=== PATIENT | female | born 1960 | race Caucasian/White ===

== ENCOUNTER → 2016-07-24 | Outpatient (CLI) | payer BC ==
[2013-05-03 11:14] VITALS: BP 150/82
[~2016-07-24] MED LIST: NS 100 ML IV 100 ML IV ONE
[2016-07-24 10:12] LABS: CREATININE 0.81 mg/dL (0.55-1.02)
--- NOTE | 2016-07-27 08:55 | CT ---
HISTORY: Soft tissue mass right humerus, right shoulder Study: CT of the right upper extremity Comparison: None Technique: Multiple axial images were obtained with and without administration of IV contrast. Sagi ttal and coronal reformats were performed and reviewed. Dose reduction techniques including Automate d Exposure Control (AEC) and adjustment of mA and kV were utilized. Findings: A metallic BB is placed overlying the region of interest of the right shoulder. Just lateral to the acromion there is a fatty ovoid mass overlying the deltoid muscle measuring approximately 4.5 x 2.9 by 2.0 cm suggestive of a lipoma. No solid features are seen. There is no enhancement. An additional metallic BB is placed overlying the distal biceps. No soft tissue mass or fatty lesion is seen in this region. There is no abnormal enhancement. There is no evidence to suggest biceps ru pture. There are no fluid collections identified. No evidence of acute fracture. There are degenerative changes at the shoulder and elbow. The visuali zed bony thorax and lung gentile are unremarkable. IMPRESSION: 1. Just lateral to the acromion there is a fatty ovoid mass overlying the right deltoid muscle measu ring 4.5 x 2.9 x 2.0 cm suggestive of a lipoma. No solid features or abnormal enhancement identified . 2. The 2nd metallic BB is placed overlying the distal biceps and there is no evidence of soft tissue mass, fluid collection or fatty lesion seen in this area. No evidence of biceps rupture. Reported By:
== END ==
LOC: RAD 09:36
PROVIDERS: ATTEND Internal Medicine
DX: R22.31 Localized swelling, mass and lump, right upper limb (principal)
CPT/HCPCS: 36415; 73201; 82565; 84520; A4222

== ENCOUNTER → 2016-08-04 | Outpatient (CLI) | payer BC ==
[2013-05-03 11:14] VITALS: BP 150/82
--- NOTE | 2016-08-04 10:21 | MG ---
Examination: Bilateral screening mammogram. Clinical history: Routine screening. Technique: Digital CC and MLO views of both breasts were obtained. Computer aided detection analysis was performed and used during the interpretation. Comparison: None available. Findings: The breasts are composed of scattered fibroglandular densities. A benign-appearing calcification is present in the right breast. There is a cluster of calcifications present at the 12 o'clock position in the left breast in the an terior to middle depth. Additional imaging evaluation is recommended, with spot magnification views in the CC and lateral projections and a lateral view of the left breast. There are 2 oval densities present in the upper outer aspect of the right breast in the middle and a nterior tips. Additional imaging evaluation is recommended, with spot compression magnification view s in the CC and MLO projections, a lateral view of the right breast and a right breast ultrasound. Impression: 1. Cluster of calcifications in the left breast and 2 densities in the right breast, as described ab ove. BI-RADS category 0 (ZERO) - ASSESSMENT INCOMPLETE; ADDITIONAL IMAGING IS NEEDED. Recommend immediate recall for additional imaging evaluation, as described above. Diagnostic CAD was utilized and reviewed. * 0 (ZERO) - ASSESSMENT INCOMPLETE; ADDITIONAL IMAGING IS NEEDED. * 0C - ASSESSMENT INCOMPLETE, NEEDS ADDITIONAL IMAGING EVALUATION AND/OR PRIOR MAMMOGRAMS FOR COMPAR EVANS. * 1/1 (ONE) - NEGATIVE. * 2/II (TWO) - BENIGN FINDINGS. * 3/III (THREE) - PROBABLY BENIGN FINDING; SHORT INTERVAL FOLLOW-UP SUGGESTED. * 4/IV (FOUR) - SUSPICIOUS ABNORMALITY; BIOPSY SHOULD BE CONSIDERED. * 5/V - HIGHLY SUSPICIOUS OF MALIGNANCY; BIOPSY SHOULD BE PERFORMED. * 6/IV - KNOWN BIOPSY PROVEN MALIGNANCY-APPROPRIATE ACTION SHOULD BE TAKEN. A NEGATIVE X-RAY REPORT SHOULD NOT DELAY BIOPSY IF A DOMINANT OR CLINICALLY SUSPICIOUS MASS IS PRESENT; 4 TO 8 PERCENT OF CANCERS ARE NOT IDENTIFIED BY X-RAY. A NEGATIVE REPORT MAY REINFORCE THE CLINICAL IMPRESSION. ADENOSIS AND DENSE BREASTS MAY OBSCURE AN UNDERLYING NEOPLASM. Reported By:
== END ==
LOC: RAD 09:23
PROVIDERS: ATTEND Physician Assistant Medical
DX: Z12.31 Encounter for screening mammogram for malignant neoplasm of breast (principal)
CPT/HCPCS: 77067

== ENCOUNTER → 2016-08-18 | Outpatient (CLI) | payer BC ==
[2013-05-03 11:14] VITALS: BP 150/82
--- NOTE | 2016-08-18 14:39 | MG ---
HISTORY: Abnormal baseline screening mammography with right breast nodules and left breast microcal cifications Bilateral digital diagnostic mammography with CAD and right breast ultrasound. Comparison: August 04, 2016 FINDINGS: Mammogram: ML and spot magnification images of both breasts were obtained. Heterogeneously dense fi broglandular tissue is seen to be present. There are persistent sub cm partially obscured and parti ally circumscribed lobulated lateral right breast nodules with an equivocal central notched lucency favored to represent benign intramammary lymph nodes or perhaps fibroadenomas or small cysts but whi ch will be correlated with ultrasound. No skin thickening or nipple retraction is appreciated. No pathological lymphadenopathy can be identified. There are small groupings of predominantly punctate microcalcifications located within the lateral right and 12 o'clock left breast most likely reflect ing fibrocystic change without suspicious fine linear blanching pleomorphism. Ultrasound: Multiple grayscale images of the right breast were obtained from 8-11 o'clock. There are no suspicious cystic or solid nodules. IMPRESSION: Probably benign right breast nodules and bilateral microcalcifications for which 6 bethany h follow up bilateral mammography is recommended to document stability and establish a baseline give n the lack of previous remote exams with which to compare. ACR CATEGORY 3 - probably benign findings; short interval followup suggested. Diagnostic CAD was utilized and reviewed. * 0 (ZERO) - ASSESSMENT INCOMPLETE; ADDITIONAL IMAGING IS NEEDED. * 1/1 (ONE) - NEGATIVE. * 2/II (TWO) - BENIGN FINDINGS. * 3/III (THREE) - PROBABLY BENIGN FINDING; SHORT INTERVAL FOLLOW-UP SUGGESTED. * 4/IV (FOUR) - SUSPICIOUS ABNORMALITY; BIOPSY SHOULD BE CONSIDERED. * 5/V (FIVE) - HIGHLY SUSPICIOUS OF MALIGNANCY; BIOPSY SHOULD BE PERFORMED. A NEGATIVE X-RAY REPORT SHOULD NOT DELAY BIOPSY IF A DOMINANT OR CLINICALLY SUSPICIOUS MASS IS PRESENT; 4 TO 8 PERCENT OF CANCERS ARE NOT IDENTIFIED BY X-RAY. A NEG ATIVE REPORT MAY REINFORCE THE CLINICAL IMPRESSION. ADENOSIS AND DENSE BREASTS MAY OBSCURE AN UNDER LYING NEOPLASM. Reported By:
== END ==
LOC: RAD 12:42
PROVIDERS: ATTEND Internal Medicine
DX: R92.8 Other abnormal and inconclusive findings on diagnostic imaging of breast (principal)
CPT/HCPCS: 76642; 77066

== ENCOUNTER 2016-09-02 07:29 | Day surgery (SDC) | payer BC ==
[~2016-09-02 07:29] MED LIST changes: +ANCEF VIAL 1 GM ONE; +LR 1000 ML IV 1,000 ML IV ONE; -NS 100 ML IV 100 ML IV ONE; +NS 50 ML IV + SPIKE MINIBAG* 50 ML IV ONE
[2016-09-02] MEDS ORDERED: XYLOCAINE 2 % (PLAIN) ONE ×2 (07:35→10:12)
[2016-09-02] MEDS ORDERED: MARCAINE 0.25% WITH EPI IJ ONE (07:35)
[2016-09-02] MEDS ORDERED: FENTANYL INJ 100 mcg ONE (08:35)
[2016-09-02] MEDS ORDERED: NS IRRIGATION 1000 ML 1,000 ML IR ONE (09:14)
[2016-09-02] MEDS ORDERED: NORCO 5/325 MG TAB ONE (09:56)
[2016-09-02] MEDS ORDERED: DIPRIVAN VIAL ONE (10:12)
[2016-09-02] MEDS ORDERED: VERSED ONE (10:12)
[2016-09-02 11:12] VITALS: BP 171/78
== END 2016-09-02 10:52 | disposition home or self-care (01) | DRG 572 ==
LOC: SURG1 07:29
PROVIDERS: ATTEND Student in an Organized Health Care Education/Training Program
PROC: 0JBD0ZZ Excision of Right Upper Arm Subcutaneous Tissue and Fascia, Open Approach (ICD-10-PCS; principal; 2016-09-02 08:30)
DX: D17.21 Benign lipomatous neoplasm of skin and subcutaneous tissue of right arm (principal)
CPT/HCPCS: A4222; S0020; J0690; J2001; J2250; J3010; J3490; J7120

== ENCOUNTER → 2016-10-22 | Outpatient (CLI) | payer BC ==
--- NOTE | 2016-10-22 11:48 | US ---
HISTORY: Abdominal pain. Study: Complete abdominal ultrasound exam. Comparison: None. Technique: Multiple montemayor scale and color flow Doppler images of the abdomen were obtained. Findings: The liver is mildly enlarged and fatty/echogenic in echotexture. No intraparenchymal mass or intrah epatic biliary ductal dilatation can be identified. The gallbladder has been surgically removed. T he common bile duct is normal measuring 6 millimeters. The spleen and pancreas are largely obscured by overlying stool and bowel gas. The right and left kidney are normal in echotexture and size. The right kidney measures 9 x 5 x 6 centimeters. The left kidney measures 9 x 6 x 5 centimeters. No mass , hydronephrosis, or stone can be identified. The visualized portions of the abdominal aorta are nor mal in size without aneurysmal dilatation. The inferior vena cava is unremarkable as well. No ascit es or loculated fluid collection is seen. IMPRESSION: 1. The liver is enlarged and echogenic/fatty in appearance. 2. Status post cholecystectomy. No ascites is observed. 3. Liver \T\ spleen are obscured by overlying stool/bowel gas. Reported By:
== END | disposition home or self-care (01) | DRG 392 ==
LOC: RAD 11:04
PROVIDERS: ATTEND Physician Assistant Medical
DX: R10.84 Generalized abdominal pain (principal); Z90.49 Acquired absence of other specified parts of digestive tract; K76.0 Fatty (change of) liver, not elsewhere classified
CPT/HCPCS: 76700

== ENCOUNTER → 2017-02-12 | Outpatient (CLI) | payer BC ==
[~2017-02-12] MED LIST changes: -ANCEF VIAL 1 GM ONE; -LR 1000 ML IV 1,000 ML IV ONE; +NS 100 ML IV 100 ML IV ONE; -NS 50 ML IV + SPIKE MINIBAG* 50 ML IV ONE
[2017-02-12 09:26] LABS: CREATININE 1.07 mg/dL (0.55-1.02)
--- NOTE | 2017-02-12 21:46 | CT ---
CT of the abdomen and pelvis with IV and oral contrast Indication: Lower abdominal suprapubic pain. Technique: After the administration of both oral and IV contrast 5 mm axial images of the abdomen and pelvis were performed. Coronal sagittal reformats were obtained from the original data set. Findings: Images of the lower lungs are unremarkable. The subcutaneous tissues show no abnormality. T he bone windows demonstrate mild multilevel discogenic degenerative disease within L3 vertebral body hemangioma. Abdomen: The liver is unremarkable except for a subcentimeter hypodensity along its inferior medial m argin which likely represents a simple cyst. The kidneys, spleen, adrenal glands and pancreas are unr emarkable. The gallbladder is been removed. There is no free abdominal fluid or adenopathy. Pelvis: The urinary bladder is distended otherwise unremarkable. there is loss of haustra involving t he sigmoid colon. There is prior right lower pelvic surgery. There is no evidence of obstruction or i leus. No evidence of mesenteric inflammation is seen. There is no free pelvic fluid or adenopathy. Conclusion: No abnormality to explain the patient's pain. Postsurgical findings within the right lowe r quadrant show no complication. Reported By:
== END ==
LOC: RAD 08:31
PROVIDERS: ATTEND Physician Assistant Medical
DX: R10.84 Generalized abdominal pain (principal)
CPT/HCPCS: 36415; 74177; 82565; 84520; A4222

== ENCOUNTER → 2017-06-30 | Day surgery (SDC) | payer BC ==
[~2017-06-30] MED LIST changes: +DIPRIVAN VIAL 20 ML ONE; -NS 100 ML IV 100 ML IV ONE; +NS 1000 ML 1,000 ML ONE
[2017-06-30 12:08] VITALS: BP 125/76
--- NOTE | 2017-06-30 13:09 | OR.GENERIC ---
Post-Op Note Generic - Post-Op Note Operative Report: Procedure Note June 30, 2017 Pre-Operative Diagnosis: Screening colonoscopy. Post-Operative Diagnosis: 1. Sigmoid colonic polyps x 2. 2. Grade I internal hemorrhoids. 3. Marginal prep. Procedure: Colonoscopy to cecum. Surgeon: Baltazar Farooq MD Cavalry Officer: Nikita Granado CRNA Specimens: Sigmoid colon polyps at 40 cm x 2. Estimated blood loss: Minimal. Complications: None. Summary: The patient is a 57 year old female who presented for a screening colonoscopy. The risk and benefits of the procedure including difficulty with anesthesia, bleeding, infection, as well as perforation were discussed with the patient. The patient understood these risks and requested the procedure. On June 30, 2017, the patient was brought to the endoscopy suite. A time out was performed verifying the patient and procedure. The patient was placed in a left lateral decubitus position. After satisfactory induction of monitored anesthesia care, a rectal exam was performed. This was normal. Next, an endoscopy was advanced through the anus and directed to the cecum without difficulty. The scope was then withdrawn viewing all mucosal surfaces. The patients prep was marginal. The cecum, ascending, transverse, as well as descending portions of the colon were normal. Specifically, there were no masses, polyps, or diverticula. The scope was withdrawn through the sigmoid portion of the colon. No masses or diverticula were seen. However, two small polyps were seen at approximately 40 cm. These were removed using cold biopsy forceps and sent to pathology. The scope was withdrawn into the rectum and retroflexed. Grade I internal hemorrhoids were noted. The scope was straightened and insufflation evacuated. The scope was withdrawn and the procedure terminated. The patient was taken to the recovery room in stable condition. There were no complications.
== END ==
LOC: SURG1 08:47
PROVIDERS: ATTEND Student in an Organized Health Care Education/Training Program
PROC: 0DJD8ZZ Inspection of Lower Intestinal Tract, Via Natural or Artificial Opening Endoscopic (ICD-10-PCS; principal; 2017-06-30 09:15)
PROC: 0DBN8ZZ Excision of Sigmoid Colon, Via Natural or Artificial Opening Endoscopic (ICD-10-PCS; principal; 2017-06-30 09:15)
DX: Z12.11 Encounter for screening for malignant neoplasm of colon (principal); K63.5 Polyp of colon; K64.0 First degree hemorrhoids; D12.5 Benign neoplasm of sigmoid colon
CPT/HCPCS: A4217; J3490

== ENCOUNTER → 2017-07-28 | Day surgery (SDC) | payer BC ==
[~2017-07-28] MED LIST changes: +ANCEF 1 GM IV PREMIX* 2 GM/100 ML BAG IV ONE; +BENADRYL INJ 50 MG VIAL IVP PRN; -DIPRIVAN VIAL 20 ML ONE; +DIPRIVAN VIAL ONE; +EPHEDRINE SULFATE INJ ONE; +FENTANYL INJ 250 mcg ONE; +LR 1000 ML IV 1,000 ML IV ONE; +LTA KIT LIDOCAINE 4% ONE; +MARCAINE 0.25% INJ ONE; +NEOSTIGMINE INJ ONE; +NORCURON INJ 10 MG VIAL ONE; -NS 1000 ML 1,000 ML ONE; +NS IRRIGATION 1000 ML 1,000 ML IR ONE; +PERCOCET TAB 5/325 MG ONE; +PERCOCET TAB 5/325 MG PO PRN; +PHENERGAN INJ 25 MG IVP PRN; +QUELICIN (OR ANECTINE) ONE; +REGLAN INJ 10 MG VIAL IVP PRN; +ROBINUL ONE; +SUPRANE IN ONE; +VERSED ONE; +XYLOCAINE 1% and EPINEPHRINE 1:100,000 ONE; +XYLOCAINE 2 % (PLAIN) ONE; +ZOFRAN INJ 4 MG VIAL IVP PRN; +ZOFRAN INJ 4 MG VIAL ONE
[2017-07-28 08:12] LABS: BASOPHILS # (AUTO) 0.1 X10^3/uL (0.0-0.1); BASOPHILS % (AUTO) 1.1 % (0.2-1.0); EOSINOPHILS # (AUTO) 0.2 x10^3/uL (0.0-0.2); EOSINOPHILS % (AUTO) 1.7 % (0.9-2.9); HEMATOCRIT 35.6 % (36.0-47.0); HEMOGLOBIN 12.1 g/dL (12.0-16.0); LYMPHOCYTES # (AUTO) 2.8 X10^3/uL (1.3-2.9); LYMPHOCYTES % (AUTO) 25.6 % (21.0-51.0); MEAN CORPUSCULAR HEMOGLOBIN 29.3 pg (27.0-34.0); MEAN CORPUSCULAR HGB CONC 34.1 g/dL (33.0-35.0); MEAN CORPUSCULAR VOLUME 85.9 fL (80.0-100.0); MEAN PLATELET VOLUME 8.3 fL (7.4-11.0); MONOCYTES # (AUTO) 0.7 x10^3/uL (0.3-0.8); NEUTROPHILS # (AUTO) 7.2 x10^3/uL (2.2-4.8); NEUTROPHILS % (AUTO) 65.6 % (42.0-75.0); PLATELET COUNT 286 X10^3/uL (150.0-450.0); RED BLOOD COUNT 4.14 X10^6/uL (3.5-5.4); RED CELL DISTRIBUTION WIDTH 13.9 % (11.6-16.5); WHITE BLOOD COUNT 10.9 X10^3/uL (3.6-10.0)
[2017-07-28 08:17] LABS: CALCIUM 8.4 mg/dL (8.5-10.1); CARBON DIOXIDE 28.7 mmol/L (21-32); CREATININE 1.2 mg/dL (0.55-1.02)
[2017-07-28] MEDS: DILAUDID INJ IVP PRN ×3 (11:18→11:28)
--- NOTE | 2017-07-28 11:23 | OR.GENERIC ---
Post-Op Note Generic - Post-Op Note Operative Report: Operative Report Date of Operation: July 28, 2017 Pre-Operative Diagnosis: Incarcerated incisional hernia. Post-Operative Diagnosis: Incarcerated incisional hernia (fascial defect approximately 2 cm). Procedure: Primary open incisional hernia repair. Surgeon: Baltazar Farooq MD Insulation Worker Interior Surface: Nikita Granado CRNA Specimens: None. Estimated blood loss: Minimal. Complications: None Summary: The patient is a 57 year old female who presented with an incarcerated incisional hernia and abdominal pain. The patient was offered incisional hernia repair. The risk and benefits of the procedure including difficulty with anesthesia, bleeding, infection, injury to intraabdominal contents requiring further surgery, recurrence, DVT, as well as PE were discussed with the patient. The patient understood these risks and requested the procedure. On July 28, 2017, the patient was brought to the operative theatre. A time out was performed verifying the patient and procedure. The patient received Ancef for pre-operative antibiosis. After satisfactory induction of general endotracheal anesthesia, the abdomen was prepped with Chloraprep and draped in the usual sterile fashion. The skin was incised sharply in the midline at the hernia. The incision was slowly carried through the dermis sharply until the hernia sac was encountered. The hernia sac was elevated and cleared circumferentially using electrocautery. The hernia was opened and the incarcerated contents placed back inside the abdomen. This required blunt dissection to release. The fascia was cleared using electrocautery and blunt dissection. The fascial defect measured approximately 2 cm. The fascia was re- approximated transversely using interrupted #2 Ethibond sutures. The wound was irrigated. Bleeding was controlled using electrocautery. The dermis was re- approximated using inverted, interrupted 3-0 Vicryl sutures. The skin edges were re-approximated using a running 4-0 Monocryl stitch. Mastisol and Steri- strips were placed. Sterile dressings were placed. The patient was awakened and taken to the recovery room in stable condition. There were no complications. All counts were correct.
[2017-07-28 12:26] VITALS: BP 101/58
== END | disposition home or self-care (01) ==
LOC: SURG1 07:15
PROVIDERS: ATTEND Student in an Organized Health Care Education/Training Program
PROC: 0WQF0ZZ Repair Abdominal Wall, Open Approach (ICD-10-PCS; principal; 2017-07-28 09:30)
DX: K43.0 Incisional hernia with obstruction, without gangrene (principal)
CPT/HCPCS: 36415; 80048; 85025; A4216; A4222; S0020; J0330; J0690; J1170; J2001; J2250; J2405; J2710; J3010; J3490; J7120